=== PATIENT | female | born 1990 | race African-American/Black ===

== ENCOUNTER 2019-09-18 20:29 | Emergency (ER) | payer MEDICAID, SELFPAY ==
[2019-09-18 20:42] VITALS: BP 121/63; PULSE 80; RESP 18; TEMP 36.6; O2SAT 99
[2019-09-18 20:53] LABS: Basophils Absolute Auto 0.1 K/mm3 (0.0-0.1); Basophils Percent Auto 0.7 % (0.2-1.2); Eosinophils Absolute Auto 0.4 K/mm3 (0-0.3); Eosinophils Percent Auto 4.7 % (0-4.4); Hematocrit 38.2 % (37.0-47.0); Hemoglobin 12.6 g/dL (12.0-15.0); Immature Granulocyte Absolute 0.02 K/mm3 (0.00-0.031); Immature Granulocyte Percent A 0.2 % (0-0.5); Mean Corpuscular Hemoglobin 27.2 pg (26-34); Mean Corpuscular Volume 82.3 fl (80-100); Mean Platelet Volume 10.4 fl (7.4-10.4); Monocytes Absolute Auto 0.5 K/mm3 (0.1-0.6); Monocytes Percent Auto 5.3 % (2.6-8.5); Neutrophils Absolute Auto 3.9 K/mm3 (1.3-6.7); Neutrophils Percent Auto 42.1 % (45.5-73.1); Platelet Count Result 399 k/mm3 (150-375); Red Blood Count 4.64 M/mm3 (4.2-5.4); Red Cell Distribution Width 16.7 % (11.5-14.5); White Blood Count 9.1 K/mm3 (4.5-10.0)
--- NOTE | 2019-09-18 21:20 | PC.NURSE ---
Pt left ED with a steady gait, accompanied by her significant other.
[2019-09-18 21:23] LABS: Beta HCG Quantitative < 2.39 mIU/ML
== END 2019-09-18 21:20 | disposition left against medical advice (07) ==
PROVIDERS: Emergency Provider Emergency Medicine
DX: N93.9 Abnormal uterine and vaginal bleeding, unspecified (principal)
CPT/HCPCS: 36415; 84702; 85025; 85461; 99199

== ENCOUNTER 2020-03-28 10:04 | Emergency (ER) | payer OTHER, SELFPAY ==
[2020-03-28 10:30] VITALS: BP 121/82; PULSE 80; RESP 16; TEMP 37; O2SAT 100
--- NOTE | 2020-03-28 10:46 | ED.GENADULT ---
HPI - General Adult General Chief complaint: Unspecified <Gerardo Oates PA-C - Last Filed: 03/28/20 10:51> Stated complaint: covid exposure <Gerardo Oates PA-C - Last Filed: 03/28/20 10:51> Time Seen by Provider: 03/28/20 10:12 <Gerardo Oates PA-C - Last Filed: 03/28/20 10:51> Source: patient <Gerardo Oates PA-C - Last Filed: 03/28/20 10:51> Mode of arrival: ambulatory <Gerardo Oates PA-C - Last Filed: 03/28/20 10:51> Limitations: no limitations <Gerardo Oates PA-C - Last Filed: 03/28/20 10:51> History of Present Illness HPI narrative: Patient is a 29-year-old female who presents with her children who were exposed to Covid this weekend patient children are at home and have began to have symptoms patient's child's father is positive for Covid patient on arrival denies any symptoms is followed by Dr. Walker <Gerardo Oates PA-C - Last Filed: 03/28/20 10:51> Related Data Allergies/adverse reactions: Allergies Allergy/AdvReac Type Severity Reaction Status Date / Time Penicillins Allergy Unknown Verified 03/28/20 10:34 <Gerardo Oates PA-C - Last Filed: 03/28/20 10:51> Review of Systems Review of Systems: All systems reviewed & are unremarkable except as noted in HPI and below <Gerardo Oates PA-C - Last Filed: 03/28/20 10:51> PMFSH Social History Social History: Social History (Updated 03/28/20 @ 10:49 by Gerardo Oates PA-C) Smoking status: Never smoker <Gerardo Oates PA-C - Last Filed: 03/28/20 10:51> Exam Narrative: Exam Narrative: GENERAL: Well-appearing, well-nourished, and in no acute distress. HEAD: Normocephalic, atraumatic. EYES: PERRLA and EOMI. ENT: Nares clear, no rhinorrhea or epistaxis. Mucous membranes moist. CHEST: Clear to auscultation. No respiratory distress. No wheezes rales or rhonchi HEART: Regular rate and rhythm. No murmur heard. Normal peripheral pulses. EXTREMITIES: Normal range of motion. No edema. SKIN: Warm, dry, no rash. NEURO: No focal deficits. Alert and oriented x3. PSYCH: Normal mood and affect. <Gerardo Oates PA-C - Last Filed: 03/28/20 10:51> Course Course Emergency Course: Patient in the room no distress aware of case findings treatment plan diagnosis has been tested for Covid will self quarantine and follow with her primary care who she understands is the individual that will be able to get her results <Gerardo Oates PA-C - Last Filed: 03/28/20 10:51> Vital Signs Vital signs: Vital Signs Temperature 37.0 C 03/28/20 10:30 Pulse Rate 80 03/28/20 10:30 Respiratory Rate 16 03/28/20 10:30 Blood Pressure 121/82 03/28/20 10:30 Pulse Oximetry 100 03/28/20 10:30 Temperature 37.0 C 03/28/20 10:30 Pulse Rate 80 03/28/20 10:30 Respiratory Rate 16 03/28/20 10:30 Blood Pressure 121/82 03/28/20 10:30 Pulse Oximetry 100 03/28/20 10:30 <Gerardo Oates PA-C - Last Filed: 03/28/20 10:51> Vital Signs Temperature 37.0 C 03/28/20 10:30 Pulse Rate 80 03/28/20 10:30 Respiratory Rate 16 03/28/20 10:30 Blood Pressure 121/82 03/28/20 10:30 Pulse Oximetry 100 03/28/20 10:30 Temperature 37.0 C 03/28/20 10:30 Pulse Rate 80 03/28/20 10:30 Respiratory Rate 16 03/28/20 10:30 Blood Pressure 121/82 03/28/20 10:30 Pulse Oximetry 100 03/28/20 10:30 <Keisha Gerber MD - Last Filed: 03/28/20 11:26> Medical Decision Making MDM Narrative Medical decision making narrative: Asymptomatic individual presenting with Covid exposure in no distress normal vital signs no symptoms will follow with primary care for further advice and has been given reasons to return <Gerardo Oates PA-C - Last Filed: 03/28/20 10:51> Vital Signs Vital Signs: Vital Signs Temperature 37.0 C 03/28/20 10:30 Pulse Rate 80 03/28/20 10:30 Respiratory Rate 16 03/28/20 10:30 Blood Pressure 121/82 1
[2020-03-28 17:56] LABS: SARS-CoV-2 RNA PCR Negative
== END 2020-03-28 11:25 | disposition home or self-care (01) ==
PROVIDERS: Emergency Medicine Emergency Medical Services; Emergency Provider Emergency Medicine; PCP Family Medicine
DX: Z20.828 Contact with and (suspected) exposure to other viral communicable diseases (principal)
CPT/HCPCS: 87635; 99283; C9803; U0003

== ENCOUNTER 2020-04-25 10:28 | Emergency (ER) | payer OTHER, SELFPAY ==
[2020-04-25] VITALS (24 sets, daily range): BP systolic 105–137; BP diastolic 49–95; PULSE 89–126; RESP 12–20; TEMP 36.7–37.1; O2SAT 96–100
--- NOTE | 2020-04-25 10:36 | ECG_ITS ---
Measurements Intervals [place] Rate: 99 P: 55 SC: 133 QRS: 64 QRSD: 85 T: 49 QT: 365 QTc: 470 Interpretive Statements SINUS RHYTHM LEFT ATRIAL ENLARGEMENT BORDERLINE ST ABNORMALITY- ANTEROLATERAL LEADS BASELINE ARTIFACT- I, III, AVR, AVL, AVF, V2 BORDERLINE ECG Electronically Signed On 04-25-2020 11:45:09 [employer]ERILE PREPARATION TECHNICIAN by Stan Michel D.O.
[2020-04-25 10:46] LABS: Basophils Absolute Auto 0.1 K/mm3 (0.0-0.1); Basophils Percent Auto 0.7 % (0.2-1.2); Eosinophils Absolute Auto 0.1 K/mm3 (0-0.3); Eosinophils Percent Auto 1.8 % (0-4.4); Hematocrit 37.3 % (37.0-47.0); Hemoglobin 12.1 g/dL (12.0-15.0); Immature Granulocyte Absolute 0.02 K/mm3 (0.00-0.031); Immature Granulocyte Percent A 0.3 % (0-0.5); Lymphocytes Absolute Auto 2.74 K/mm3 (0.9-3.2); Lymphocytes Percent Auto 35.8 % (18.3-44.2); Mean Corpuscular HGB Conc 32.4 g/dl (32-36); Mean Corpuscular Hemoglobin 28.1 pg (26-34); Mean Corpuscular Volume 86.7 fl (80-100); Mean Platelet Volume 9.5 fl (7.4-10.4); Monocytes Absolute Auto 0.4 K/mm3 (0.1-0.6); Monocytes Percent Auto 5.6 % (2.6-8.5); Neutrophils Absolute Auto 4.3 K/mm3 (1.3-6.7); Neutrophils Percent Auto 55.8 % (45.5-73.1); Platelet Count Result 317 k/mm3 (150-375); Red Cell Distribution Width 14.4 % (11.5-14.5); White Blood Count 7.7 K/mm3 (4.5-10.0)
[2020-04-25 10:58] LABS: Anion Gap 4 mmol/L (8-16); Blood Urea Nitrogen 5 mg/dL (7-17); Calcium 8.5 mg/dL (8.4-10.2); Carbon Dioxide 26 mmol/L (22-30); Chloride 107 mmol/L (98-107); Estimated CRCL calculation 114 ml/min; Estimated Glomerular Filt Rate > 60; Glucose 119 mg/dL (65-105); Potassium 3.5 mmol/L (3.4-5.0); Sodium 137 mmol/L (137-145)
--- NOTE | 2020-04-25 11:08 | PC.NURSE ---
Addendum entered by Ahmet Redman RN 04/25/20 11:19: Correction, Pt. took Seroquel not sertraline, same dosage Original Note: Pt. denies any SI/HI to RN or any suicide attempt. Pt. explained to ERP that she took approx 13 pills of sertraline this morning. She believes they are dosed at 150mg. Suicide precautions initiated, sitter at bedside, belongings removed, non-essential equipment removed from bedside.
--- NOTE | 2020-04-25 11:13 | PC.NURSE ---
Pt. stated being really dizzy and stating unable to ambulate. Pt. ambulated to the rest room to get a urine sample with any difficulty or assistance.
[2020-04-25] MEDS: SODIUM CHLORIDE 0.9% IV 1,000 ML 999 ML IV CONT (11:34)
[2020-04-25] MEDS: ONDANSETRON INJ 4 MG/2 ML VIAL IV PUSH (11:34)
[2020-04-25 12:41] LABS: Alanine Aminotransferase 14 U/L (4-35); Albumin Level 3.9 g/dL (3.5-5.1); Alkaline Phosphatase 74 U/L (38-126); Aspartate Amino Transferase 31 U/L (14-36); Bilirubin,Total 0.3 mg/dL (0.2-1.3)
[2020-04-25 12:44] LABS: Acetaminophen < 10 ug/mL (10-30); Ethanol 37 mg/dL (<10); Salicylate < 1.0 mg/dL (2-20)
--- NOTE | 2020-04-25 12:48 | ED.GENADULT ---
HPI - General Adult General Chief complaint: Dizziness <Kal Gilbert MD - Last Filed: 04/25/20 20:49> Stated complaint: feel like I'm going to pass out <Kal Gilbert MD - Last Filed: 04/25/20 20:49> Time Seen by Provider: 04/25/20 10:50 <Kal Gilbert MD - Last Filed: 04/25/20 20:49> History of Present Illness HPI narrative: Patient reports that she presents ER with complaints of feeling like she is going to pass out. After further investigation patient recently broke up with her significant other. This caused her to be depressed and she decided to take a handful of Seroquel in an attempt to kill herself. She reports is a new bottle. She typically takes 1 pill a day. The bottle was filled couple days ago. She does not know the quantity which she took. Formal boyfriend has brought the pill bottle which shows it is missing 10 tablets total. In all likelihood she took between 8 to 10 tablets. She is reporting some mild dizziness and also some nausea related to the ingestion of the pills. She reports she tried to commit suicide previously when she is 16 years old. She was hospitalized at that time. She also reports she drinks some alcohol today. <Kal Gilbert MD - Last Filed: 04/25/20 20:49> Related Data Home medications: Home Medications Medication Instructions Recorded Confirmed quetiapine [Seroquel] 04/25/20 sertraline mg 04/25/20 <Kal Gilbert MD - Last Filed: 04/25/20 20:49> Allergies/adverse reactions: Allergies Allergy/AdvReac Type Severity Reaction Status Date / Time Penicillins Allergy Unknown Verified 03/28/20 10:34 <Kal Gilbert MD - Last Filed: 04/25/20 20:49> Review of Systems Review of Systems: All systems reviewed & are unremarkable except as noted in HPI and below <Kal Gilbert MD - Last Filed: 04/25/20 20:49> Constitutional: Constitutional: Denies chills, Denies fever(s) and Denies weakness <Kal Gilbert MD - Last Filed: 04/25/20 20:49> ENT: Denies nasal congestion and Denies sore throat <Kla Gilbert MD - Last Filed: 04/25/20 20:49> Gastrointestinal: Gastrointestinal: Denies abdominal pain, Reports diarrhea, Reports nausea and Denies vomiting <Kal Gilbert MD - Last Filed: 04/25/20 20:49> Neurologic: Reports dizziness, Reports headache(s), Denies focal weakness and Denies numbness <Kal Gilbert MD - Last Filed: 04/25/20 20:49> Psychiatric: Psychiatric: Denies anxiety, Reports depression, Denies homicidal ideation and Reports suicidal ideation <Kal Gilbert MD - Last Filed: 04/25/20 20:49> PMFSH Past Medical History Medical History: Medical History (Updated 04/25/20 @ 20:48 by Kal Gilbert MD) Bipolar disorder <Kal Gilbert MD - Last Filed: 04/25/20 20:49> Surgical History Surgical History: Surgical History (Updated 04/25/20 @ 12:50 by Kal Gilbert MD) No pertinent past surgical history <Kal Gilbert MD - Last Filed: 04/25/20 20:49> Social History Social History: Social History (Updated 03/28/20 @ 10:49 by Gerardo Oates PA-C) Smoking status: Never smoker <Kal Gilbert MD - Last Filed: 04/25/20 20:49> Exam Narrative: Exam Narrative: GENERAL: Well-appearing, well-nourished, and in no acute distress. HEAD: Normocephalic, atraumatic. EYES: PERRLA and EOMI. CHEST: Clear to auscultation. No respiratory distress. HEART: Tachycardic and regular. Normal peripheral pulses. ABDOMEN: Soft, nontender, nondistended. EXTREMITIES: Normal range of motion. No edema. SKIN: Warm, dry, no rash. NEURO: Alert and oriented x3. PSYCH: Withdrawn, depressed, endorses suicidality.. <Kal Gilbert MD - Last Filed: 04/25/20 20:49> Course Course Emergency Course: I assumed care at change of shift for this patient. She was repeatedly asking for Seroquel. Patient just overdosed on this and attempt to commit suicide.
--- NOTE | 2020-04-25 13:16 | PC.NURSE ---
Pt. attempted to urinate x2 with no success. Pt. aware of possible catheter if unable to provide sample.
[2020-04-25 13:17] LABS: Thyroid Stimulating Hormone Reflex 0.856 uIU/mL (0.465-4.68)
[2020-04-25 15:17] LABS: Prothrombin Time 13.9 Seconds (11.1-14.7)
[2020-04-25 15:18] LABS: Partial Thromboplastin Time 29.3 SECONDS (22.3-36.8)
[2020-04-25 16:02] LABS: Add Urine Microscopic? NO; Appearance Urine Clear (Clear); Bilirubin Urine Negative (Negative); Blood Urine Negative (Negative); Color Urine Yellow (Yellow); Glucose Urine UA Negative (Negative); Ketones Urine Negative (Negative); Leukocyte Esterase Ur Negative LEU/UL (Negative); Nitrate Urine Negative (Negative); Protein Urine Negative (Negative); Specific Grav Ur 1.015 (1.001-1.035); Urobilinogen Urine Negative mg/dL (<2.0)
[2020-04-25 16:17] LABS: Amphetamine Screen Urine Negative (Negative); Barbiturate Screen Urine Negative (Negative); Benzodiazepines Screen Urine Negative (Negative); Cannabinoid Screen Urine Negative (Negative); Cocaine Screen Urine Negative (Negative); Methadone Screen Urine Negative (Negative); Opiate Screen Urine Negative (Negative); Phencyclidine Screen Urine Negative (Negative)
--- NOTE | 2020-04-25 19:00 | PC.NURSE ---
Assumed Care of Pt. report from JUAN JOSE Puckett
[2020-04-25 21:42] LABS: SARS-CoV-2 RNA PCR Negative
--- NOTE | 2020-04-25 22:11 | PC.NURSE ---
Faxed chart to Sen @ 22:10.
--- NOTE | 2020-04-25 22:52 | PC.NURSE ---
Pt. accepted at [facility]. Pt. will have a bed in the morning 04/26/20. RN to fax over Pt. negative covid-19 and assessment sheet.
[2020-04-26 07:59] VITALS: BP 113/63; PULSE 80; RESP 18; O2SAT 99
--- NOTE | 2020-04-26 08:00 | PC.NURSE ---
This RN into pts room. Pt is sleeping but easily aroused. PT was complied while getting vitals. States she is no longer having HI/SI thoughts. Pt requested a drink and breakfast tray.
--- NOTE | 2020-04-26 08:11 | PC.NURSE ---
Called [facility] and spoke with Vasu. Was informed that still no beds available but will call us when one is available.
--- NOTE | 2020-04-26 10:30 | PC.NURSE ---
Packet faxed to [facility]
--- NOTE | 2020-04-26 10:32 | PC.NURSE ---
[facility] [phone]
--- NOTE | 2020-04-26 11:00 | PC.NURSE ---
faxed again to [facility] [phone] & [phone]
--- NOTE | 2020-04-26 13:42 | PC.NURSE ---
Annmarie Medeiros from [facility] called to gather information on pt. States she will turn information over to admissions and give us a call back.
--- NOTE | 2020-04-26 14:14 | PC.NURSE ---
Emma called from [facility] and states that pt is accepted.
--- NOTE | 2020-04-26 14:52 | PC.NURSE ---
Emma from [facility] informed that pt has found placement
--- NOTE | 2020-04-26 15:04 | PC.NURSE ---
[facility] accepted transfer ETA 0730 wednesday04-27-2020
[2020-04-26] MEDS: ACETAMINOPHEN 500 MG TABLET 1000 MG PO (16:39)
[2020-04-26 19:22] VITALS: BP 112/60; PULSE 74; RESP 18; O2SAT 99
--- NOTE | 2020-04-26 19:50 | PC.NURSE ---
[facility] called to check on patients ETA to their facility. Notified them that she is scheduled to leave our facility at 0730 tomorrow morning with EMS.
[2020-04-27] MEDS: diphenhydrAMINE HCl CAP 25 MG CAPSULE 50 MG PO (00:27)
--- NOTE | 2020-04-27 04:02 | PC.NURSE ---
assumed care of pt at this time, received report from cameron mathur
[2020-04-27 04:05] VITALS: BP 114/79; PULSE 68; RESP 18; O2SAT 100
[2020-04-27 08:57] VITALS: BP 114/79; PULSE 68; RESP 20; O2SAT 99
== END 2020-04-27 08:58 ==
PROVIDERS: Emergency Medicine; Emergency Provider General Practice; PCP Family Medicine
DX: T43.592A Poisoning by other antipsychotics and neuroleptics, intentional self-harm, initial encounter (principal); F31.9 Bipolar disorder, unspecified; Z20.822 Contact with and (suspected) exposure to COVID-19; R94.31 Abnormal electrocardiogram [ECG] [EKG]
CPT/HCPCS: 36415; 80048; 80076; 80307; 81003; 81025; 83735; 84443; 85025; 85610; 85730; 93005; 96361; 96374; 99285; A9270; C9803; J2405; J7030; U0003; U0005